=== PATIENT | male | born 1985 | race Two or more races ===

== ENCOUNTER → 2024-10-12 | Emergency (ER) | payer OTHER ==
[~2024-10-12] VITALS: Ht 177.8 cm; Wt 115.7 kg
[~2024-10-12] MED LIST: ALBUTEROL SULFATE 3 ML/2.5 MG AMPUL.NEB IH SCH; AZITHROMYCIN500 MG PO; BENZONATATE200 M1 PO; GUAIFENESIN 200 MG/10 ML BLIST.PACK PO STA; LEVALBUTER0.63 MG/3 IH; LOSARTAN POTASS50 MG; MEDROLPACK PO; METHYLPREDNISOLONE SOD SUCC 125 MG VIAL IV STA; PEPCID AC20 MG PO; PROAIR RESPICL90 MCG IH; SINGULAIR10 MG PO
[2024-10-12 06:23] LABS: HEMATOCRIT 44.2 % (39.0-48.0); HEMOGLOBIN 15.2 g/dL (13-16.00); MEAN CELL VOLUME 82.3 fL (80.0-100.00); MEAN CORPUSCULAR HEMOGLOBIN 28.2 pg (27.00-32.0); MEAN CORPUSCULAR HGB CONC 34.3 g/dl (32.0-36.0); PLATELET COUNT 201 K/uL (150-450); RED BLOOD COUNT 5.38 M/uL (4.00-6.00); RED CELL DISTRIBUTION WIDTH 13.9 % (11.5-14.5)
[2024-10-12 06:26] LABS: ABG PH 7.424 (7.35-7.45); ABG PO2 82.2 mmHg (80-100); BASE EXCESS -2.4 mmol/l; BICARBONATE 21.1 mmol/l (23-25); SaO2 96.2 %; Tco2 22.1 mmol/l
[2024-10-12 06:41] LABS: allen test SATISFACTORY; o2 21 %; puncture site RADIAL RIGHT
== END | disposition home or self-care (01) ==
LOC: ER 02:31
PROVIDERS: General Practice
DX: R53.81 Other malaise (principal); R05.9 Cough, unspecified; R50.9 Fever, unspecified; J40 Bronchitis, not specified as acute or chronic; Z20.822 Contact with and (suspected) exposure to COVID-19; I10 Essential (primary) hypertension